=== PATIENT | male | born 1955 | race Caucasian/White ===

== ENCOUNTER → 2024-06-05 12:31 | Outpatient (REF) | payer MEDICARE, BC, SELFPAY ==
--- NOTE | 2024-06-05 14:12 | CARDSERVDEF ---
Echocardiogram with Definity completed after protocol screening completed. Allergies verified. Pt here for Stress Echo
Patent IV site: Left antcubital 22 G PC, rapid blood return
IV site flushed with 0.9% NaCl pre and post administration.
Diluted bolus method utilized to enhance visualization of ventricular lyman.
Total volume given: __6__ mL
Patient tolerated all procedures well without complications.
Heplock D/C ed at 1410, site clear, no redness, no edema. Pressure held, no bleeding. 2x2 applied and taped. Pt offers no complaints.
== END ==
LOC: RCS 12:31
PROVIDERS: ATTENDING PHYSICIAN Internal Medicine
DX: R06.02 Shortness of breath (principal)
CPT/HCPCS: 93017; 93350; Q9957